=== PATIENT | female | born 1975 | race Caucasian/White ===

== ENCOUNTER 2021-10-01 14:11 | Outpatient (CLI) | payer OTHER, SELFPAY ==
[2021-10-01 12:26] LABS: Cholesterol* 230 mg/dL (90-199)
[2021-10-01 12:27] LABS: Glucose* 98 mg/dL (60-115); HDL Cholesterol* 57 mg/dL (>=50); LDL Cholesterol Calculated 151 mg/dL (<100); Triglycerides* 108 mg/dL (40-149)
== END 2021-10-01 14:12 | disposition home or self-care (01) ==
PROVIDERS: PCP Family Medicine; Visit Provider Registered Nurse
DX: Z13.6 Encounter for screening for cardiovascular disorders (principal); Z13.1 Encounter for screening for diabetes mellitus; Z83.49 Family history of other endocrine, nutritional and metabolic diseases
CPT/HCPCS: 80061; 82947; 84443

== ENCOUNTER 2021-10-31 15:33 | Outpatient (CLI) | payer OTHER, SELFPAY ==
--- OUTSIDE RECORDS SUMMARY | 2021-10-31 15:35 | XMS_ITS ---
:1975 Author Care Team Providers Name Role Phone Bailey Nunez Primary Care Provider Unavailable Allergies Code Code System Name Reaction Severity Status Onset 696769 RxNorm Augmentin Rash Moderate Active ? 535919 RxNorm Bactrim Rash Moderate Active ? 6980 RxNorm Minocycline Headache Moderate Active ? Medications Name Status Start Date Stop Date ? ? + DHA Active ? Not available Problems No Known Problems Procedures Date Name Performed by ? 02/09/2011 OB- Section Information not avai lable Results Lab Results Date Name Specimen Result Interpretation Description Value Range Status Address ? 10/06/2016 CBC W/ ? Wbc 6.4 3.4-10.8 Final [facility] orp Auto Diff x10e3/uL x10e3/uL ([facility]): [address] [facility] ? ? ? Rbc 4.37 3.77-5.28 Final [facility] x10e6/uL x10e6/uL ([facility] [address] [facility] ? ? ? Hemoglobin 12.7 g/dL 11.1-15.9 Final [facility] g/dL ([facility]): [address] [facility] ? ? ? Hematocrit 38.1 % 34.0-46.6 Final [facility] % ([facility]): [address] [facility] ? ? ? Mcv 87 fL 79-97 fL Final [facility] ([facility]): [address] [facility] ? ? ? Mch 29.1 pg 26.6-33.0 Final [facility] p pg ([facility]): [address] [facility] ? ? ? Mchc 33.3 g/dL 31.5-35.7 Final [facility] orp g/dL ([facility]): [address] [facility] ? ? ? Rdw 13.5 % 12.3-15.4 Final [facility] % ([facility]): [address] [facility] ? ? ? Platelets 190 150-379 Final [facility] rp x10e3/uL x10e3/uL ([facility]): [address], [place] ? ? ? Neutrophils 55 % ? Final [facility] orp ([facility] n): [address], [place] ? ? ? Lymphs 38 % ? Final [facility] ([facility] n): [address], [place] ? ? ? Monocytes 4 % ? Final [facility] p ([facility] n): [address], [place] ? ? ? Eos 3 % ? Final [facility] ([facility] n): [address], [place] ? ? ? Basos 0 % ? Final [facility] ([facility] n): [address], [place] ? ? ? Immature surgical instrument technician ? Cancelled [facility] orp Cells ([facility] n): [address], [place] ? ? ? Neutrophils 3.5 1.4-7.0 Final [facility] (Absolute) x10e3/uL x10e3/uL ([facility]): [address], [place] ? ? ? Lymphs 2.4 0.7-3.1 Final [facility] (Absolute) x10e3/uL x10e3/uL ([facility]): [address], [place] ? ? ? Monocytes(ab 0.2 0.1-0.9 Final [facility] solute) x10e3/uL x10e3/uL ([facility]): [address], [place] ? ? ? Eos 0.2 0.0-0.4 Final [facility] (Absolute) x10e3/uL x10e3/uL ([facility]): [address], [place] ? ? ? Baso 0.0 0.0-0.2 Final [facility] (Absolute) x10e3/uL x10e3/uL ([facility]): [address], [place] ? ? ? Immature 0 % ? Final [facility] Granulocytes ([facility]): [address], [place] ? ? ? Immature 0.0 0.0-0.1 Final [facility] p Grans (Abs) x10e3/uL x10e3/uL ( [place]): [address], [place] ? ? ? Nrbc surgical instrument technician ? Cancelled [facility] ([facility] n): [address], [place] ? ? ? Hematology surgical instrument technician ? Cancelled [facility] Comments: ([facility]): [address] [facility] 10/06/2016 CMP, Serum Above Glucose, 100 mg/dL 65-99 Fin al [facility] or Plasma High Serum mg/dL ([facility]): Normal [address] [facility] ? ? ? Bun 12 mg/dL 6-20 Final [facility] mg/dL ([facility]): [address] [facility] ? ? Below Creatinine, 0.49 0.57-1.00 Final [facility] Low Serum mg/dL mg/dL ([facility]): Normal [address] [facility] ? ? ? eGFR If 123 >59 Final [facility] Nonafricn AM mL/min/1. mL/min/1. ([place]): 73 73 [address] [facility] ? ? ? eGFR If 142 >59 Final [facility] Africn AM mL/min/1. mL/min/1. ( [place]): 73 73 [address] [facility] ? ? Above BUN/creatini 24 9-23 Final [facility] High ne Ratio ([facility]): Normal [address] [facility] ? ? ? Sodium, 141 134-144 Final [facility] Serum mmol/L mmol/L ([facility]): [address] [facility] ? ? ? Potassium, 3.6 3.5-5.2 Final [facility] or[facility] Serum mmol/L mmol/L ([facility]): [address] [facility] ? ? ? Chloride, 101 96-106 Final [facility] p Serum mmol/L mmol/L ([facility]): [address] [facility] ? ? ? Carbon 25 mmol/L 18-29 Final [facility] p Dioxide, mmol/L ([facility]): Total [address] [facility] ? ? ? Calcium, 8.9 mg/dL 8.7-10.2 Final [facility] Serum mg/dL ([facility]): [address] [facility] ? ? ? Protein, 7.4 g/dL 6.0-8.5 Final [facility] or[facility] Total, Serum g/dL ([facility]): [address] [facility] ? ? ? Albumin, 4.6 g/dL 3.5-5.5 Final [facility] orp Serum g/dL ([facility]): [address] [facility] ? ? ? Globulin, 2.8 g/dL 1.5-4.5 Final [facility] Total g/dL ([facility]): [address] [facility] [place] ? ? ? A/g Ratio 1.6 1.2-2.2 Final [facility] rp ([facility]): [address] [facility], [place] ? ? ? Bilirubin, <0.2 0.0-1.2 Final [facility] orp Total mg/dL mg/dL ([facility]): [address] [facility] [place] ? ? ? Alkaline 85 IU/L 39-117 Final [facility] p Phosphatase, IU/L ([facility]): S [address] [facility] ? ? ? Ast (Sgot) 18 IU/L 0-40 IU/L Final [facility] ([facility]): [address] [facility] ? ? ? Alt (Sgpt) 11 IU/L 0-32 IU/L Final [facility] ([facility]): [address] [facility] 10/06/2016 TSH, ? Tsh 2.070 0.450-4.5 Final [facility] Ultra-sens uIU/mL 00 uIU/mL ([facility]): itive, [address] [facility], Serum [place] ? ? Result UPT negative ? ? In-House Test, Results: F or Urine Internal U se Only, Do N ot Delete/chantell ge Past Encounters None recorded. Social History Tobacco Smoking Status Never Smoker Vaccine List None recorded. Plan of Care Reminders Provider Appointments None recorded. ? ? Lab None recorded. ? ? Referral None recorded. ? ? Procedures None recorded. ? ? Surgeries None recorded. ? ? Imaging None recorded. ? ? Vitals 06/17/2017 04:00PM ULTRASOUND Height Weight BMI Blood Pressure 5 ft 3 in 131 lbs 23.2 kg/m2 103/49 mm[Hg] 04/16/2017 03:15PM ULTRASOUND Height Weight BMI Blood Pressure 5 ft 3 in 133 lbs 23.6 kg/m2 103/59 mm[Hg] 10/06/2016 03:30PM G_NEW PATIENT* Height Weight BMI Blood Pressure 5 ft 3 in 132 lbs 23.4 kg/m2 101/52 mm[Hg]
--- OUTSIDE RECORDS SUMMARY | 2021-10-31 15:35 | XMS_ITS | Clinical Summary ---
:1975 Author Organization [facility] [place] [address] Care Team Providers Name Role Phone Pcp, No Primary Care Provider Unavailable Allergies Active Allergy Reactions Severity Noted Date Comments Amoxicillin-Pot Clavulanate Rash 09/17/2011 Sulfamethoxazole-Trimethoprim Rash 09/17/2011 Medications Medication Sig Dispensed Refills Start Date End Date Status fluticasone (50 mcg Inhale 1 Deaver 1 Bottle 0 04/18/2014 Active per actuation) nasal into both nostrils solution (FLONASE) once daily. metroNIDAZOLE Apply topically to 45 g 0 06/26/2014 Active (METROGEL) 1 % gel affected area(s) once daily. azelaic acid (FINACEA) Apply topically to 0 06/27/19 15 Active 15 % topical gel affected area(s) 2 times daily. Active Problems Not on file Social History Tobacco Use Types Packs/Day Years Used Date Never Smoker Tobacco Cessation: Counseling Given: Yes Alcohol Use Standard Drinks/Week Comments Not Asked 0 (1 standard drink = 0.6 oz pure alcoho l) Sex Assigned at Date Recorded Not on file Obstetrics History Last Filed Vital Signs Vital Sign Reading Time Taken Comments Blood Pressure 100/63 06/26/2014 9:14 AM CDT tower Pulse 68 06/26/2014 9:14 AM CDT Temperature 36.7 ??C (98.1 ??F) 06/26/2014 9:14 AM CDT Respiratory Rate - - Oxygen Saturation 99% 06/26/2014 9:14 AM CDT Inhaled Oxygen Concentration - - Weight 62.2 kg (137 lb 3.2 oz) 06/26/2014 9:14 AM CDT Height 158.5 cm (5' 2.4) 06/26/2014 9:14 AM CDT Body Mass Index 24.77 06/26/2014 9:14 AM CDT Plan of Treatment Health Maintenance Due Date Last Done Comments COVID-19 vaccine series (#1) 03/11/1978 Tdap 1988 Depression screening for age 12+ 1989 BMI (ht and wt on same day) for 09/09/1995 age 18+ Hepatitis C screening for age 0709/09/1995 18-79 Tetanus booster 1997 Influenza for age 9-49 10/10/2021 Pap test for age 21-65 08/28/2023 08/27/2020, 08/27/2020, 11/08/2014, Additional history exists Results Not on filefrom Last 3 Months Insurance Payer Benefit Plan / Subscriber ID Effective Dates Phone Addre ss Type Group [employer] [id number] 2014-Present [address] [place] [address] Care Teams Snubber Relationship Specialty Start Date End Date Pcp, No PCP - General 03/04/12 .
--- NOTE | 2021-10-31 15:40 | CRLHL7_ITS ---
For Patients: As a result of the Century Cures Act, medical imaging exams and procedure reports are released immediately into your electronic medical record. You may view this report before your referring provider. If you have questions, please contact your health care provider. BILATERAL SCREENING MAMMOGRAM WITH COMPUTER-AIDED DETECTION TECHNIQUE: CC and MLO views were obtained. These mammographic images have been obtained using full-field digital technique. These mammographic images were interpreted with the benefit of computer-aided detection. COMPARISON FILM: Baseline. FINDINGS: The breasts are heterogeneously dense, which may obscure small masses IMPRESSION: There is no radiographic evidence for malignancy. ASSESSMENT: BI-RADS Category 1: Negative RECOMMENDATION: Routine screening mammogram in 1 year. A lay language report of this examination will be provided to the patient. Al Barrios M.D. Diagnostic Radiologist [email or web address] BAHMAN/Dictated by: lA Barrios MD @ 11/01/2021 8:18:00 AM (Electronically Signed)
== END 2021-10-31 15:34 | disposition home or self-care (01) ==
LOC: MAMMO 15:34
PROVIDERS: PCP Family Medicine; Visit Provider Registered Nurse
DX: Z12.31 Encounter for screening mammogram for malignant neoplasm of breast (principal); R92.2 Inconclusive mammogram
CPT/HCPCS: 77063; 77067

== ENCOUNTER 2022-02-06 14:19 | Outpatient (CLI) | payer OTHER, SELFPAY ==
--- NOTE | 2022-02-06 14:30 | MR_ITS ---
[facility] [address] [facility] [address] Phone:?[phone] Fax:?[phone] Referring Physician Information: Alejandro Alfred M.D. [address] [facility] [address] Phone:?[phone] Fax:?[phone] Patient:Shannan Harden D.O.B:?1975 Sex:?Female Phone:?[phone] [facility] MRN:?[id number] Exam Date:?02/06/2022 ? EXAM: MRI of the RIGHT KNEE, without contrast CLINICAL: Right knee pain for 2 months. Evaluate for meniscal tear versus Bell's cyst. COMPARISONS: None available. TECHNICAL: MR sequences of the right knee: sagittals: PD, PDFS coronals: PD, T2FS axials: PD, PDFS SEDATION: None. CONTRAST: None. FINDINGS: Ligaments: ACL: Intact and unremarkable. PCL: Intact and unremarkable. MCL: Intact and unremarkable. LCL: Intact and unremarkable. Posterolateral corner: Popliteus, biceps femoris, iliotibial band, and the popliteofibular ligament appear intact. Posteromedial corner: Semimembranosus, pes anserine tendons and posterior oblique ligament appear intact. Extensor mechanism: Patellar tendon: Intact, without tendinopathy. Quadriceps tendon: Intact, without tendinopathy. Retinacula: Medial and lateral retinacula are intact. Fat pads: Minimal edema within superolateral Hoffa's fat. Patellofemoral joint: Patella: There is full-thickness chondral loss involving the inferior lateral patellar facet with underlying subchondral reactive edema/cystic change. Deep chondral fissuring also involves the lateral patellar facet and there is grade 2 chondral thinning involving the remainder of the lateral patellar facet. Trochlea: Mild heterogeneity of the central trochlea cartilage. There is deep chondral fissuring involving the superior lateral trochlea on axial series 4 image 15 and there is minimal subchondral cystic change involving the lateral trochlea. Medial compartment: Medial meniscus: No evidence of discrete meniscal tear or meniscal displacement. Medial cartilage: No significant chondromalacia. Lateral compartment: Lateral meniscus: No evidence of discrete meniscal tear or meniscal displacement. Lateral cartilage: No significant chondromalacia. Knee joint: Effusion: Physiologic right knee effusion. Intra-articular bodies:?No convincing bodies identified. Popliteal cyst: None. Bones: There is increased bone marrow edema involving the lateral trochlea extending into the anterior lateral femoral condyle. No osseous fracture site is identified.? IMPRESSION: 1. Patellar chondromalacia as above, including full-thickness chondral loss involving the inferior lateral facet with underlying subchondral reactive edema/small cystic change. Deep chondral fissuring involves the superior lateral trochlea with minimal underlying subchondral cystic change involving the lateral trochlea. There is increased subchondral marrow edema involving the lateral trochlea extending into the anterior lateral femoral condyle which may reflect reactive changes with osseous contusion/stress related changes also considered. 2. No evidence of meniscal tear or ligamentous injury. [facility] Electronically signed on 02/07/2022 8:11:00 AM by Diego Andres D.O.
== END 2022-02-06 14:20 | disposition home or self-care (01) ==
LOC: MRI 14:19
PROVIDERS: PCP Family Medicine; Visit Provider Family Medicine
DX: M25.561 Pain in right knee (principal); M22.41 Chondromalacia patellae, right knee
CPT/HCPCS: 73721

== ENCOUNTER 2022-02-26 15:42 | Outpatient (CLI) | payer OTHER, SELFPAY ==
[2022-02-26 18:45] LABS: Chlamydia DNA Amplified* NOT DETECTED (No Detected); GC DNA Amplified* NOT DETECTED (No Detected)
== END 2022-02-26 15:43 | disposition home or self-care (01) ==
LOC: NFLDREF 15:42
PROVIDERS: PCP Family Medicine; Visit Provider Registered Nurse
DX: Z11.3 Encounter for screening for infections with a predominantly sexual mode of transmission (principal)
CPT/HCPCS: 87491; 87591

== ENCOUNTER 2022-10-08 16:45 | Outpatient (RCR) | payer OTHER, SELFPAY | END 2022-12-03 09:17 | disposition home or self-care (01) | PROVIDERS: PCP Family Medicine; Visit Provider Family Medicine | DX: M25.561 Pain in right knee (principal); M62.81 Muscle weakness (generalized); Z51.89 Encounter for other specified aftercare | CPT/HCPCS: 97110; 97161 ==

== ENCOUNTER 2022-10-14 17:49 | Emergency (ER) | payer BC, SELFPAY ==
[2022-10-14 18:01] VITALS: BP 107/62; PULSE 68; RESP 16; TEMP 36.4; O2SAT 97; BMI 25.6
--- NOTE | 2022-10-14 18:55 | ED.GENADULT ---
HPI - General Adult General Chief complaint: Unspecified Complaint, Adult Stated complaint: Numb R arm Time Seen by Provider: 10/14/22 18:03 History of Present Illness HPI narrative: This 47-year-old female comes in reporting some tingling sensation in her right upper extremity and a feeling of some pressure in her maxillary sinuses bilaterally. The tingling sensation began about 2 or 3 hours prior to arrival and has dissipated almost completely by now. The symptoms of pressure in her face occurred separately. She states that she has a history of migraine headaches that seem to be cyclical with her menstrual cycle and these have been occurring over the past urine half. She was prescribed amitriptyline a few months ago and was taking it intermittently for as a preventative medicine. She has increased the dose from 25 mg to 50 mg in the last 3 days and wonders if this may be triggering some adverse effects for her. She does not describe any weakness. She does not currently have a headache. She is able to walk and speak normally. Related Data Home Medications Medication Instructions Recorded Confirmed metronidazole 0.75 % topical gel 1 topical BID 09/04/21 07/24/22 levonorgestrel 21 mcg/24 hours (8 1 device intrauterine ONCE 04/11/22 07/24/22 yrs) 52 mg intrauterine device (Mirena) cholecalciferol (vitamin D3) 25 25 mcg PO QDAY PRN 07/24/22 07/24/22 mcg (1,000 unit) capsule Previous Rx's Medication Instructions Recorded amitriptyline 10 mg tablet 10 - 50 mg (1 - 5 x 10 mg) PO QDAY 07/24/22 PRN migraine prevention #60 tabs sumatriptan succinate 50 mg tablet 50 mg PO ONCE PRN migraine 07/24/22 headache #12 tabs fluticasone propionate 50 2 spray intranasal DAILY #16 mL 09/08/22 mcg/actuation nasal spray,suspension carvedilol 3.125 mg tablet (Coreg) 3.125 mg PO BID #60 tabs 10/14/22 Allergies Allergy/AdvReac Type Severity Reaction Status Date / Time penicillin V Allergy Severe Rash Verified 07/24/22 09:18 sulfamethoxazole Allergy Severe Rash Verified 07/24/22 09:18 minocycline Allergy Mild Migraine Verified 07/24/22 09:18 Review of Systems Status of ROS: Reports: 10 or more systems reviewed and unremarkable except as noted in History and below Narrative: Constitutional: No fevers, no weight gain or loss. Eyes: No discharge. No vision changes. HENT: No congestion, no sore throat, no ear pain. Cardiovascular: No chest pain, no palpitations. Respiratory: No shortness of breath, no wheezes, no cough. Gastrointestinal: No abdominal pain, no vomiting, no diarrhea. Genitourinary: No dysuria, no hematuria. Musculoskeletal: Normal range of motion. Skin: No rashes, no pruritis. Neurological: No dizziness, weakness, speech change. Tingling sensation in her right upper extremity as described above. Endo/Heme/Allergies: No bruising or bleeding. No polydipsia. Pysch: no suicidality, no anxiety, no insomnia. All other systems reviewed and are negative. [facility] Medical History Acute posthemorrhagic anemia Insomnia Ruptured ovarian cyst Third-degree perineal laceration during delivery, delivered Vaginal after Surgical History History of delivery affecting Family History Paternal Grandfather Heart disease Maternal Grandmother Colon cancer Father Thyroid disease High blood pressure Hyperlipidemia Mother Hyperlipidemia Osteoporosis COPD (chronic obstructive pulmonary disease) Brother Abuse, drug or alcohol Other FH: mental illness Social History Smoking Status: Never smoker How often do you have a drink containing alcohol: monthly or less AUDIT-C Alcohol total score: 1 Non-prescribed substance use: denies use Little interest or pleasure in doing things: not at all Feeling down, depressed, or hopeless: several days service: No Exam Narrative: Exam Narrative: Constitutional: Well-developed, well-nourished, no acute distress. HEENT: Normocephalic, atraumatic. Neck: Normal range of motion. Nontender. Supple. Heart: Regular. No murmurs. Normal rate. Intact distal pulses. Lungs: Clear to auscultation. No chest discomfort. No wheezes, rhonchi, or rales. Abdomen: Normal bowel sounds. Nontender. No rebound tenderness. Genitalia: Deferred. Back: No midline tenderness. Normal range of motion. She does not have any neck pain. Extremities: Normal range of motion. No injury. Skin: Intact. No rash. Warm. No erythema or pallor. Neurologic: No weakness. Alert and oriented. No facial asymmetry. Tongue is midline. [id number] is normal. No pronator drift. Academic Director strength is equal bilaterally. She is able to raise each leg from the bed. Psychiatric: No suicidality. No anxiety or depression. No insomnia. Nursing notes and vitals signs are reviewed. Const: Vital Signs, click to edit/add: Vital Signs - 24 hr 10/14/22 18:01 Temperature 97.6 F Pulse Rate [Right Pulse Oximeter] 68 Respiratory Rate 16 Blood Pressure [Ri ght Upper Arm] 107/62 Pulse Oximetry 97 Oxygen Delivery Me thod Room Air Course Vital Signs Vital signs: Initial Vital Signs Temperature 97.6 F 10/14/22 18:01 Temperature Source Temporal Artery Scan 10/14/22 18:01 Pulse Rate 68 10/14/22 18:01 Pulse Rhythm Regular 10/14/22 18:01 Respiratory Rate 16 10/14/22 18:01 Blood Pressure 107/62 10/14/22 18:01 Blood Pressure Mean 77 10/14/22 18:01 Blood Pressure Position Sitting 10/14/22 18:01 Pulse Oximetry 97 10/14/22 18:01 Oxygen Delivery Method Room Air 10/14/22 18:01 Vital Signs Temperature 97.6 F 10/14/22 18:01 Pulse Rate 68 10/14/22 18:01 Respiratory Rate 16 10/14/22 18:01 Blood Pressure 107/62 10/14/22 18:01 Pulse Oximetry 97 10/14/22 18:01 Oxygen Delivery Method Room Air 10/14/22 18:01 Temperature 97.6 F 10/14/22 18:01 Pulse Rate 68 10/14/22 18:01 Respiratory Rate 16 10/14/22 18:01 Blood Pressure 107/62 10/14/22 18:01 Pulse Oximetry 97 10/14/22 18:01 Oxygen Delivery Method Room Air 10/14/22 18:01 Medical Decision Making MDM Narrative Medical decision making narrative: This patient comes in reporting some tingling sensation in her right upper extremity. She has no sign of neurologic deficit. Her exam is completely normal. Additionally her symptoms have dissipated significantly. She is wondering if this may be an adverse effect of increasing the amitriptyline dose. Paresthesias are listed as a common reaction and this medicine is best increased incrementally. She states that she does not normally take amitriptyline but does so that certain times in the month when she is more likely to have a headache. She has not really tapered into a 50 mg dose and this may be causing her symptoms. I did discuss other differential diagnoses including cerebral vascular accident, cervical radiculopathy, and migraine symptoms. I did also discuss lab and imaging options which the patient declined in a process of shared decision making. It does seem that her altered sensation could be related to her increase of the dosage of amitriptyline. She is not showing symptoms suspicious for nerve impingement. Currently she does not have a headache. She is interested in some kind a preventative medicines for these migraines because they have been more frequent and intense recently. This was why she increase the dose to 50 mg. She did this on her own initiative without instructions from her doctor. Her systolic blood pressure registers around 110. I did suggest trying Coreg in a low dose as this may give some preventative benefit for migraines. Her blood pressure may decrease and heart rate decreased but it is worth a try and she is interested in this. I advised her to follow-up with her primary physician. Discharge Plan Discharge Clinical Impression: Arm paresthesia, right Patient Disposition: Home, Self-Care Condition: Improved Additional Instructions: Take medication as prescribed. Follow up with primary physician for ongoing management. Return if worsening. Prescriptions: New carvedilol [Coreg] 3.125 mg tablet 3.125 mg PO BID Qty: 60 2RF Rx Instructions: must administer with a meal/food No Action metronidazole 0.75 % gel 1 topical BID cholecalciferol (vitamin D3) 25 mcg (1,000 unit) capsule 25 mcg PO QDAY PRN Mirena 21 mcg/24 hours (8 yrs) 52 mg intrauterine device 1 device intrauterine ONCE Rx Instructions: as a single dose amitriptyline 10 mg tablet 10 - 50 mg PO QDAY PRN (Reason: migraine prevention) Qty: 60 2RF sumatriptan succinate 50 mg tablet 50 mg PO ONCE PRN (Reason: migraine headache) Qty: 12 11RF Rx Instructions: may repeat once after at least 2 hours fluticasone propionate 50 mcg/actuation spray,suspension 2 spray intranasal DAILY Qty: 16 11RF Follow Up/Referrals: Alejandro Alfred MD [Primary Care Provider] - Stand Alone Forms: [employer] Info Instructions
== END 2022-10-14 19:13 | disposition home or self-care (01) ==
PROVIDERS: Emergency Provider Emergency Medicine Emergency Medical Services; PCP Family Medicine
DX: R20.2 Paresthesia of skin (principal)
CPT/HCPCS: 99283; 99284

== ENCOUNTER 2023-01-19 13:00 | Outpatient (CLI) | payer BC, SELFPAY ==
--- NOTE | 2023-01-19 13:00 | CRLHL7_ITS ---
For Patients: As a result of the Century Cures Act, medical imaging exams and procedure reports are released immediately into your electronic medical record. You may view this report before your referring provider. If you have questions, please contact your health care provider. BILATERAL SCREENING MAMMOGRAM WITH COMPUTER-AIDED DETECTION TECHNIQUE: CC and MLO views were obtained. These mammographic images have been obtained using full-field digital technique. These mammographic images were interpreted with the benefit of computer-aided detection. COMPARISON FILM: 10/31/21. FINDINGS: The breasts are heterogeneously dense, which may obscure small masses IMPRESSION: There is no radiographic evidence for malignancy. ASSESSMENT: BI-RADS Category 1: Negative RECOMMENDATION: Routine screening mammogram in 1 year. A lay language report of this examination will be provided to the patient. Al Barrios M.D. Diagnostic Radiologist [email or web address] BAHMAN/Dictated by: Al Barrios MD @ 01/20/2023 11:29:00 AM (Electronically Signed)
== END 2023-01-19 13:01 | disposition home or self-care (01) ==
LOC: MAMMO 13:00
PROVIDERS: PCP Family Medicine; Visit Provider Obstetrics & Gynecology
DX: Z12.31 Encounter for screening mammogram for malignant neoplasm of breast (principal); R92.2 Inconclusive mammogram
CPT/HCPCS: 77067

== ENCOUNTER 2023-04-07 10:14 | Outpatient (CLI) | payer BC, SELFPAY ==
--- NOTE | 2023-04-07 11:28 | W.ANESCHARGE ---
Anesthesia Charges Start Date/Time Anesthesia Start Date: 04/07/23 Anesthesia Start Time: 11:13 Stop Date/Time Anesthesia Stop Date: 04/07/23 Anesthesia Stop Time: 11:53
--- NOTE | 2023-04-07 11:55 | W.ANESCHARGE ---
Anesthesia Charges Start Date/Time Anesthesia Start Date: 04/07/23 Anesthesia Start Time: 11:13 Stop Date/Time Anesthesia Stop Date: 04/07/23 Anesthesia Stop Time: 11:53
== END 2023-04-07 10:15 | disposition home or self-care (01) ==
LOC: OP CLINIC 10:16
PROVIDERS: PCP Family Medicine; Visit Provider Surgery
DX: Z12.11 Encounter for screening for malignant neoplasm of colon (principal); K63.5 Polyp of colon
CPT/HCPCS: 00811; 45385; 81025; 88305; J2704

== ENCOUNTER 2024-01-26 15:26 | Outpatient (CLI) | payer BC, SELFPAY ==
--- NOTE | 2024-01-26 15:40 | CRLHL7_ITS ---
For Patients: As a result of the Cures Act, medical imaging exams and procedure reports are released immediately into your electronic medical record. You may view this report before your referring provider. If you have questions, please contact your health care provider. BILATERAL SCREENING MAMMOGRAM WITH COMPUTER-AIDED DETECTION AND TOMOSYNTHESIS TECHNIQUE: CC and MLO views were obtained. These mammographic images have been obtained using full-field digital technique. These mammographic images were interpreted with the benefit of computer-aided detection. Breast Tomosynthesis was used in this interpretation. COMPARISON FILM: 01/19/23, 10/31/21. FINDINGS: The breasts are heterogeneously dense, which may obscure small masses IMPRESSION: There is no radiographic evidence for malignancy. ASSESSMENT: BI-RADS Category 1: Negative RECOMMENDATION: Routine screening mammogram in 1 year. A lay language report of this examination will be provided to the patient. Al Barrios M.D. Diagnostic Radiologist [email or web address] Transcribed: 4:48 p.mIrvin cisneros/Dictated by: Al Barrios MD @ 01/27/2024 10:00:00 AM (Electronically Signed)
== END 2024-01-26 15:27 | disposition home or self-care (01) ==
LOC: MAMMO 15:27
PROVIDERS: PCP Family Medicine; Visit Provider Registered Nurse
DX: Z12.31 Encounter for screening mammogram for malignant neoplasm of breast (principal); R92.333 Mammographic heterogeneous density, bilateral breasts
CPT/HCPCS: 77063; 77067

== ENCOUNTER 2024-05-16 08:21 | Outpatient (CLI) | payer BC, SELFPAY | END 2024-05-16 08:22 | disposition home or self-care (01) | LOC: NFLDREF 05-20 06:04 | PROVIDERS: PCP Family Medicine; Referring Provider Family Medicine; Visit Provider Family Medicine | DX: E78.5 Hyperlipidemia, unspecified (principal); Z13.9 Encounter for screening, unspecified | CPT/HCPCS: 80053; 80061 ==